=== PATIENT | male | born 1975 ===

== ENCOUNTER 2016-03-22 15:19 | Emergency (ER) | payer SELFPAY ==
[~2016-03-22] VITALS: Ht 182.9 cm; Wt 85.0 kg
[2016-03-22 15:22] VITALS: BP 142/87; PULSE 118; RESP 17; TEMP 98.1; O2SAT 97
--- NOTE | 2016-03-22 16:32 | PD ---
HPI Chief Complaint: Abdominal Pain Time Seen by Provider: 16:32 Travel History International Travel<30 days: No Contact w/Intl Traveler<30days: No Traveled to known affect area: No History of Present Illness HPI 40-year-old male with new diagnosis of stomach cancer in October 2015, presents to emergency department for evaluation of severe epigastric and left upper quadrant pain. Pain is mostly epigastric and he can pinpoint. He's been nauseous or vomiting. No fever or chills. Patient does not currently see a provider locally because he moved from [place]. Denies any chest tightness. No difficulty breathing. He has no other symptoms to report this time. PFSH Past Medical History Cancer: Yes Social History Tobacco Use: No Allergies-Medications (Allergen,Severity, Reaction): Coded Allergies: No Known Allergies (Unverified , 03/22/16) Review of Systems Except as stated in HPI: all other systems reviewed are Neg Physical Exam Narrative GENERAL: Well-nourished male patient, in mild distress secondary to pain SKIN: Warm and dry. HEAD: Atraumatic. Normocephalic. EYES: Pupils equal and round. No scleral icterus. No injection or drainage. ENT: No nasal bleeding or discharge. Mucous membranes pink and moist. NECK: Trachea midline. No JVD. CARDIOVASCULAR: Tachycardic rate and rhythm. No murmur appreciated. RESPIRATORY: No accessory muscle use. Clear to auscultation. Breath sounds equal bilaterally. GASTROINTESTINAL: Abdomen soft, nondistended. Epigastric tenderness to palpation. Hepatic and splenic margins not palpable. MUSCULOSKELETAL: No obvious deformities. No clubbing. No cyanosis. No edema. NEUROLOGICAL: Awake and alert. No obvious cranial nerve deficits. Motor grossly within normal limits. Normal speech. PSYCHIATRIC: Appropriate mood and affect; insight and judgment normal. Data Data Last Documented VS Vital Signs Date Time Temp Pulse Resp B/P Pulse Ox O2 Delivery O2 Flow Rate FiO2 03/22/16 15:22 98.1 118 17 142/87 97 Orders Complete Blood Count With Diff (03/22/16 16:32) Comprehensive Metabolic Panel (03/22/16 16:32) Lipase (03/22/16 16:32) Prothrombin Time / Inr (Pt) (03/22/16 16:32) Act Partial Throm Time (Ptt) (03/22/16 16:32) Urinalysis - C+S If Indicated (03/22/16 16:32) Electrocardiogram (03/22/16 16:32) Labs Laboratory Tests Test 03/22/16 17:25 White Blood Count 10.1 TH/MM3 Red Blood Count 4.72 MIL/MM3 Hemoglobin 14.7 GM/DL Hematocrit 43.1 % Mean Corpuscular Volume 91.4 FL Mean Corpuscular Hemoglobin 31.2 PG Mean Corpuscular Hemoglobin 34.2 % Concent Red Cell Distribution Width 14.6 % Platelet Count 260 TH/MM3 Mean Platelet Volume 9.2 FL Neutrophils (%) (Auto) 77.3 % Lymphocytes (%) (Auto) 15.7 % Monocytes (%) (Auto) 6.0 % Eosinophils (%) (Auto) 0.4 % Basophils (%) (Auto) 0.6 % Neutrophils # (Auto) 7.8 TH/MM3 Lymphocytes # (Auto) 1.6 TH/MM3 Monocytes # (Auto) 0.6 TH/MM3 Eosinophils # (Auto) 0.0 TH/MM3 Basophils # (Auto) 0.1 TH/MM3 CBC Comment DIFF FINAL Differential Comment Prothrombin Time 10.7 SEC Prothromb Time International 1.0 RATIO Ratio Activated Partial 21.0 SEC Thromboplast Time Urine Color YELLOW Urine Turbidity CLEAR Urine pH 6.5 Urine Specific Alpha 1.018 Urine Protein NEG mg/dL Urine Glucose (UA) NEG mg/dL Urine Ketones NEG mg/dL Urine Occult Blood NEG Urine Nitrite NEG Urine Bilirubin NEG Urine Urobilinogen LESS THAN 2.0 MG/DL Urine Leukocyte Esterase NEG Urine WBC 1 /hpf Urine Squamous Epithelial <1 /hpf Cells Microscopic Urinalysis Comment CULT NOT INDICATED Sodium Level 138 MEQ/L Potassium Level 4.6 MEQ/L Chloride Level 104 MEQ/L Carbon Dioxide Level 23.8 MEQ/L Anion Gap 10 MEQ/L Blood Urea Nitrogen 16 MG/DL Creatinine 1.05 MG/DL Estimat Glomerular Filtration 78 ML/MIN Rate Random Glucose 90 MG/DL Calcium Level 8.9 MG/DL Total Bilirubin 0.4 MG/DL Aspartate Amino Transf 59 U/L (AST/SGOT) Alanine Aminotransferase 58 U/L (ALT/SGPT) Alkaline Phosphatase 114 U/L Total Protein 8.0 GM/DL Albumin 4.2 GM/DL Lipase 189 U/L [facility] Medical Decision Making Medical Screen Exam Complete: Yes Emergency Medical Condition: Yes Medical Record Reviewed: Yes Differential Diagnosis Metastatic disease versus gastritis versus pancreatitis Narrative Course 40-year-old male presents to emergency department for evaluation of abdominal pain. Workup was initiated in triage. Once a medical bed becomes available, patient will be transferred and care assumed by that provider. Patient is not in the waiting room when called to medical bed. Diagnosis Primary Impression: Abdominal pain Qualified Code: R10.13 - Epigastric pain Disposition: 07 AGAINST MEDICAL ADVICE Condition: Stable Marilee Prabhakar Mar 22, 2016 16:32
[2016-03-22 18:12] LABS: BLOOD, URINE NEG (NEG); GLUCOSE,URINE NEG (NEG); KETONE, URINE NEG (NEG); NITRITE,URINE NEG (NEG); PH, URINE 6.5 (5.0-8.5); SQUAMOUS EPITHELIAL CELL URINE <1 /hpf (0-5); URINE COLOR YELLOW (YELLW/STRAW)
[2016-03-22 18:15] LABS: AUTOMATED NEUTROPHIL # 7.8 TH/MM3 (1.8-7.7); BASOPHIL # 0.1 TH/MM3 (0-0.2); BASOPHIL % 0.6 % (0.0-2.0); EOSINOPHIL % 0.4 % (0.0-4.0); HEMATOCRIT 43.1 % (39.0-51.0); HEMO FLAGS DIFF FINAL; LYMPH % 15.7 % (9.0-44.0); LYMPHOCYTE # 1.6 TH/MM3 (1.0-4.8); MEAN CELL VOLUME 91.4 FL (80.0-100.0); MEAN CORPUSCULAR HEMOGLOBIN 31.2 PG (27.0-34.0); MEAN CORPUSCULAR HGB CONC 34.2 % (32.0-36.0); NEUT % 77.3 % (16.0-70.0); PLATELET COUNT 260 TH/MM3 (150-450); RED BLOOD COUNT 4.72 MIL/MM3 (4.50-5.90); RED CELL DISTRIBUTION WIDTH 14.6 % (11.6-17.2); WHITE BLOOD COUNT 10.1 TH/MM3 (4.0-11.0)
[2016-03-22 18:20] LABS: COMMENT (UR) CULT NOT INDICATED; CULTURE IF INDICATED CULT NOT INDICATED
[2016-03-22 18:28] LABS: PROTHROMBIN TIME - PATIENT 10.7 SEC (9.8-11.6)
[2016-03-22 18:54] LABS: ALKALINE PHOSPHATASE 114 U/L (45-117); ALT (GPT) 58 U/L (12-78); ANION GAP 10 MEQ/L (5-15); AST (GOT) 59 U/L (15-37); BICARBONATE 23.8 MEQ/L (21.0-32.0); BLOOD UREA NITROGEN 16 MG/DL (7-18); CHLORIDE 104 MEQ/L (98-107); GLOMERULAR FILTRATION RATE 78 ML/MIN (>89); POTASSIUM 4.6 MEQ/L (3.5-5.1); SODIUM (NA) 138 MEQ/L (136-145); TOTAL BILIRUBIN ADULT 0.4 MG/DL (0.2-1.0)
--- NOTE | 2016-03-23 13:36 | EKG ---
Date Performed: 03/22/2016 Time Performed: 16:43:46 PTAGE: 40 years EKG: SINUS TACHYCARDIA ABNORMAL RHYTHM ECG NO PREVIOUS TRACING DOCTOR: Graciela Grijalva Interpretating Date/Time 03/23/2016 13:31:01
== END 2016-03-22 18:55 | disposition left against medical advice (07) ==
LOC: NETRI 15:19
DX: R10.13 Epigastric pain (principal)
CPT/HCPCS: 80053; 81001; 83690; 85025; 85610; 85730; 93005; 99283